=== PATIENT | male | born 1985 | race Caucasian/White ===

== ENCOUNTER 2016-12-27 06:06 | Emergency (ER) | payer OTHER ==
[~2016-12-27] VITALS: Ht 175.3 cm; Wt 88.0 kg
[2016-12-27] MEDS ORDERED: IOHEXOL 350 MG/ML 10 ML VIAL (for RAD DIAG) IVCONTRAST ONE (06:07)
[2016-12-27 06:08] VITALS: BP 142/89; PULSE 70; RESP 16; TEMP 98.2; O2SAT 97
[2016-12-27] MEDS ORDERED: PENICILLIN (06:18)
[2016-12-27 06:23] VITALS: O2SAT 100
--- NOTE | 2016-12-27 06:33 | PD ---
HPI Chief Complaint: Chest Pain Time Seen by Provider: 06:25 Travel History International Travel<30 days: No Contact w/Intl Traveler<30days: No Traveled to known affect area: No History of Present Illness HPI The patient is a 31 year old male who presents to the [facility] emergency department with a history of chills, a sensation of warmth in his head, chest tightness, and tingling in the left arm. He went to sleep at 3AM. He awoke with an alarm to take his prescription for Penicillin. He is on it for a dental infection in the maxilla on the right. He has been on the antibiotic for approximately a week. He arrived yesterday from [place]. The chest tightness is in the upper left chest and into the shoulder. It made him feel short of breath. He reports that he has had tingling sensations in the left arm in the past. He did have this evaluated a few months ago and was diagnosed with a pinched nerve after imaging studies were done. He denies having any diaphoresis. He denies having any nausea or vomiting. On review systems otherwise, the patient denies having any known fevers, cough, congestion, neck pain, abdominal pain, diarrhea, urinary symptoms, or neurologic symptoms. The patient denies any history of hypertension, hyperlipidemia, diabetes mellitus. He denies any tobacco use. He denies having any significant family history of heart disease. He denies any prior history of DVT or PE. [facility] Past Medical History Narrative Medical The patient's past medical history is significant for a dental infection, reported recent diagnosis of a pinched nerve affecting the left arm. Medical History: Denies Significant Hx Past Surgical History Narrative Surgical The patient's past surgical history is significant for wisdom teeth extraction, right hand surgery. Social History Alcohol Use: Yes Tobacco Use: No Substance Use: No Allergies-Medications (Allergen,Severity, Reaction): Coded Allergies: Sulfa (Sulfonamide Antibiotics) (Verified Allergy, Severe, Anaphylaxis, ) acetaminophen (Verified Allergy, Severe, Hallucinations, 12/27/16) hydromorphone (Verified Allergy, Severe, Lethargy, 12/27/16) oxycodone (Verified Allergy, Severe, Hallucinations, 12/27/16) Reported Meds & Prescriptions Reported Meds & Active Scripts Active Reported [Penicillin] Unknown Strength Unknown Dose Narrative Medication Penicillin and Ibuprofen. Review of Systems Except as stated in HPI: all other systems reviewed are Neg General / Constitutional: No: Fever Eyes: No: Visual changes HENT: Positive: Dental Difficulties, No: Headaches Cardiovascular: Positive: Chest Pain or Discomfort Respiratory: Positive: Shortness of Breath Gastrointestinal: No: Abdominal Pain Genitourinary: No: Dysuria Musculoskeletal: No: Pain Skin: No Rash Neurologic: Positive: Paresthesia (left arm), No: Weakness, Focal Abnormalities , Change in Mentation, Slurred Speech, Sensory Disturbance Psychiatric: No: Depression Endocrine: No: Polydipsia Hematologic/Lymphatic: No: Easy Bruising Physical Exam Narrative General: The patient is a well-developed well-nourished male in no acute distress. Head and Neck exam: Head is normocephalic atraumatic. Eyes: EOMI, pupils are equal round and reactive to light. Nose: Midline septum with pink mucous membranes Mouth: Dentition unremarkable. Moist mucus membranes. Posterior oropharynx is not erythematous. No tonsillar hypertrophy. Uvula midline. Airway patent. Neck: No palpable lymphadenopathy. No nuchal rigidity. No thyromegaly. Cardiovascular: Regular rate and rhythm without murmurs, gallops, or rubs. Lungs: Clear to auscultation bilaterally. No wheezes, rhonchi, or rales. Abdomen: Soft, without tenderness to palpation in all 4 quadrants of the abdomen. No guarding, rebound, or rigidity. Normal bowel sounds are audible. No tenderness on palpation of McBurney's point. Extremities: No clubbing, cyanosis, or edema. 2+ pulses in all 4 extremities. No calf tenderness on palpation. Negative Homans sign. Back: No spinous process tenderness to palpation. No costovertebral angle tenderness to palpation. Neurologic Exam: Grossly nonfocal. Skin Exam: No rash noted. Intact skin that is warm and dry. Data Data Last Documented VS Vital Signs Date Time Temp Pulse Resp B/P (MAP) Pulse Ox O2 Delivery O2 Flow Rate FiO2 12/27/16 06:23 100 Room Air 12/27/16 06:23 12/27/16 06:08 98.2 70 16 Orders Orders Electrocardiogram (12/27/16 06:19) Complete Blood Count With Diff (12/27/16 06:19) Basic Metabolic Panel (Bmp) (12/27/16 06:19) Ckmb (Isoenzyme) Profile (12/27/16 06:19) Troponin I (12/27/16 06:19) Chest, Single Ap (12/27/16 06:19) Iv Access Insert/Monitor (12/27/16 06:19) Ecg Monitoring (12/27/16 06:19) Oxygen Administration (12/27/16 06:19) Oximetry (12/27/16 06:19) D-Dimer (12/27/16 06:25) Aspirin Chew (Aspirin Chew) (12/27/16 07:00) Labs Laboratory Tests Test 12/27/16 06:21 12/27/16 06:32 White Blood Count 10.3 TH/MM3 Red Blood Count 5.27 MIL/MM3 Hemoglobin 15.2 GM/DL Hematocrit 43.8 % Mean Corpuscular Volume 83.1 FL Mean Corpuscular Hemoglobin 28.8 PG Mean Corpuscular Hemoglobin Concent 34.6 % Red Cell Distribution Width 13.6 % Platelet Count 198 TH/MM3 Mean Platelet Volume 8.5 FL Neutrophils (%) (Auto) 49.4 % Lymphocytes (%) (Auto) 33.6 % Monocytes (%) (Auto) 7.0 % Eosinophils (%) (Auto) 9.5 % Basophils (%) (Auto) 0.5 % Neutrophils # (Auto) 5.1 TH/MM3 Lymphocytes # (Auto) 3.5 TH/MM3 Monocytes # (Auto) 0.7 TH/MM3 Eosinophils # (Auto) 1.0 TH/MM3 Basophils # (Auto) 0.1 TH/MM3 CBC Comment DIFF FINAL Differential Comment Blood Urea Nitrogen 16 MG/DL Creatinine 0.88 MG/DL Random Glucose 96 MG/DL Calcium Level 8.9 MG/DL Sodium Level 139 MEQ/L Potassium Level 4.3 MEQ/L Chloride Level 103 MEQ/L Carbon Dioxide Level 28.1 MEQ/L Anion Gap 8 MEQ/L Estimat Glomerular Filtration Rate 100 ML/MIN Total Creatine Kinase 70 U/L Troponin I LESS THAN 0.02 NG/ML MDM Medical Decision Making Medical Screen Exam Complete: Yes Emergency Medical Condition: Yes Medical Record Reviewed: Yes Differential Diagnosis Acute coronary syndrome, versus pulmonary embolism, versus anxiety, versus pleurisy, versus musculoskeletal strain Narrative Course During the course of the patients emergency department visit, the patients history, examination, and differential diagnosis were reviewed with the patient. The patient was placed on a cardiac catheterization technologist with oximetry and frequent blood pressure monitoring. The patient had IV access obtained and blood work sent for analysis. The patient had an ECG done on arrival. The patient's ECG shows a sinus rhythm heart rate is 75, borderline left axis deviation is noted, T waves are inverted in lead 3, no acute ST segment elevation is noted. The patient was initially provided aspirin 324 mg by mouth 1. The patients laboratory studies and imaging studies are pending at the conclusion of my shows. The patient's case will be checked out to the oncoming emergency physician to disposition the patient based on the conclusion of his workup. Diagnosis Primary Impression: Chest pain Qualified Codes: R07.9 - Chest pain, unspecified Niki Kemp MD Dec 27, 2016 06:33
[2016-12-27 06:42] LABS: AUTOMATED NEUTROPHIL # 5.1 TH/MM3 (1.8-7.7); BASOPHIL # 0.1 TH/MM3 (0-0.2); BASOPHIL % 0.5 % (0.0-2.0); EOSINOPHIL % 9.5 % (0.0-4.0); HEMATOCRIT 43.8 % (39.0-51.0); HEMO FLAGS DIFF FINAL; LYMPH % 33.6 % (9.0-44.0); LYMPHOCYTE # 3.5 TH/MM3 (1.0-4.8); MEAN CELL VOLUME 83.1 FL (80.0-100.0); MEAN CORPUSCULAR HEMOGLOBIN 28.8 PG (27.0-34.0); MEAN CORPUSCULAR HGB CONC 34.6 % (32.0-36.0); NEUT % 49.4 % (16.0-70.0); PLATELET COUNT 198 TH/MM3 (150-450); RED BLOOD COUNT 5.27 MIL/MM3 (4.50-5.90); RED CELL DISTRIBUTION WIDTH 13.6 % (11.6-17.2); WHITE BLOOD COUNT 10.3 TH/MM3 (4.0-11.0)
--- NOTE | 2016-12-27 06:49 | RADRPT ---
EXAM DATE/TIME: 12/27/2016 06:27 [facility] COMPARISON: No previous studies available for comparison. INDICATIONS : Chest pain, shortness of breath. MEDICAL HISTORY : None. SURGICAL HISTORY : None. ENCOUNTER: Initial ACUITY: 1 day PAIN SCORE: 0/10 LOCATION: Bilateral chest FINDINGS: Examination of the chest demonstrates the heart and mediastinum to be normal. The lungs are free of p arenchymal opacity. No effusions are identified. Osseous structures are intact. CONCLUSION: No acute cardiopulmonary disease. Ramos Peters MD on December 27, 2016 at 6:47 Board Certified Radiologist. This report was verified electronically.
[2016-12-27 06:59] LABS: ANION GAP 8 MEQ/L (5-15); BICARBONATE 28.1 MEQ/L (21.0-32.0); BLOOD UREA NITROGEN 16 MG/DL (7-18); CHLORIDE 103 MEQ/L (98-107); GLOMERULAR FILTRATION RATE 100 ML/MIN (>89); POTASSIUM 4.3 MEQ/L (3.5-5.1); SODIUM (NA) 139 MEQ/L (136-145)
[2016-12-27] MEDS ORDERED: ASPIRIN 81 MG CHEW TAB CHEW ONE (07:00)
[2016-12-27 07:03] LABS: CREATINE KINASE 70 U/L (39-308)
--- NOTE | 2016-12-27 08:56 | RADRPT ---
EXAM DATE/TIME: 12/27/2016 08:17 [facility] COMPARISON: No previous studies available for comparison. INDICATIONS : Chest pain IV CONTRAST: 70 cc Omnipaque 350 (iohexol) IV RADIATION DOSE: 15.11 CTDIvol (mGy) MEDICAL HISTORY : None SURGICAL HISTORY : None. ENCOUNTER: Initial ACUITY: 1 day PAIN SCALE: 5/10 LOCATION: chest TECHNIQUE: Volumetric scanning of the chest was performed using a pulmonary embolism protocol MIP images were re constructed. Using automated exposure control and adjustment of the mA and/or kV according to patien t size, radiation dose was kept as low as reasonably achievable to obtain optimal diagnostic quality images. DICOM format image data is available electronically for review and comparison. Follow-up recommendations for detected pulmonary nodules are based at a minimum on nodule size and pa tient risk factors according to Fleischner Society Guidelines. FINDINGS: PULMONARY ARTERIES: No filling defects are seen in the pulmonary arteries through the segmental level. LUNGS: There is no consolidation or pneumothorax . No concerning pulmonary nodule is visualized. PLEURAE: There is no pleural thickening or pleural effusion. MEDIASTINUM: There is good visualization of the great vessels of the middle mediastinum. No evidence of mediastin al or hilar adenopathy/mass. MUSCULOSKELETAL: Within normal limits for patient age. MISCELLANEOUS: The visualized upper abdominal organs demonstrate no acute abnormality. CONCLUSION: Normal examination. Yovanny Grover MD on December 27, 2016 at 8:48 Board Certified Radiologist. This report was verified electronically.
--- NOTE | 2016-12-27 09:07 | PD ---
Data Data Last Documented VS Vital Signs Date Time Temp Pulse Resp B/P (MAP) Pulse Ox O2 Delivery O2 Flow Rate FiO2 12/27/16 06:23 100 Room Air 12/27/16 06:23 12/27/16 06:08 98.2 70 16 Orders Orders Electrocardiogram (12/27/16 06:19) Complete Blood Count With Diff (12/27/16 06:19) Basic Metabolic Panel (Bmp) (12/27/16 06:19) Ckmb (Isoenzyme) Profile (12/27/16 06:19) Troponin I (12/27/16 06:19) Chest, Single Ap (12/27/16 06:19) Iv Access Insert/Monitor (12/27/16 06:19) Ecg Monitoring (12/27/16 06:19) Oxygen Administration (12/27/16 06:19) Oximetry (12/27/16 06:19) D-Dimer (12/27/16 06:25) Aspirin Chew (Aspirin Chew) (12/27/16 07:00) Ct Pulmonary Angiogram (12/27/16 ) Iohexol 350 Inj (Omnipaque 350 Inj) (12/27/16 06:07) Labs Laboratory Tests Test 12/27/16 06:21 12/27/16 06:32 White Blood Count 10.3 TH/MM3 Red Blood Count 5.27 MIL/MM3 Hemoglobin 15.2 GM/DL Hematocrit 43.8 % Mean Corpuscular Volume 83.1 FL Mean Corpuscular Hemoglobin 28.8 PG Mean Corpuscular Hemoglobin Concent 34.6 % Red Cell Distribution Width 13.6 % Platelet Count 198 TH/MM3 Mean Platelet Volume 8.5 FL Neutrophils (%) (Auto) 49.4 % Lymphocytes (%) (Auto) 33.6 % Monocytes (%) (Auto) 7.0 % Eosinophils (%) (Auto) 9.5 % Basophils (%) (Auto) 0.5 % Neutrophils # (Auto) 5.1 TH/MM3 Lymphocytes # (Auto) 3.5 TH/MM3 Monocytes # (Auto) 0.7 TH/MM3 Eosinophils # (Auto) 1.0 TH/MM3 Basophils # (Auto) 0.1 TH/MM3 CBC Comment DIFF FINAL Differential Comment Blood Urea Nitrogen 16 MG/DL Creatinine 0.88 MG/DL Random Glucose 96 MG/DL Calcium Level 8.9 MG/DL Sodium Level 139 MEQ/L Potassium Level 4.3 MEQ/L Chloride Level 103 MEQ/L Carbon Dioxide Level 28.1 MEQ/L Anion Gap 8 MEQ/L Estimat Glomerular Filtration Rate 100 ML/MIN Total Creatine Kinase 70 U/L Troponin I LESS THAN 0.02 NG/ML D-Dimer Quantitative (PE/DVT) 0.57 MG/L [facility] Supervised Visit with JANELLE: Yes Narrative Course 31-year-old man presents emergent heart complaining of chest pain, left-sided, starting last night, rating in his arm. Initially seen by Dr. Niki Kemp signed out to me to follow-up on results of diagnostic testing. LABS: CBC is unremarkable CMP unremarkable Troponin negative D-dimer 0.57 CT pulmonary angiogram negative Chest x-ray negative Personally Reviewed of EKG. No definite evidence of acute ischemia. FINAL: 31-year-old male sided chest pain. Clinically history is mildly suggestive of heart problems. Troponin negative. EKG without acute ischemia. D-dimer is a little bit elevated but CT shows no evidence of PE. He has been under some stress. He also is taking penicillin antibiotics u as well as NSAIDs and could be having some pill esophagitis or gastritis. Nonetheless, I think he is safe for outpatient follow-up. Diagnosis Primary Impression: Chest pain Qualified Codes: R07.9 - Chest pain, unspecified Additional Instruction: Continue current medications. Return to the emergency department for any worsening chest pain or trouble breathing. Follow-up with her primary doctor soon as you returned home. Med/Other Pt SpecificInfo: No Change to Meds Disposition: 01 DISCHARGE HOME Condition: Stable Gabriel Persaud MD Dec 27, 2016 09:07
--- NOTE | 2016-12-27 18:39 | EKG ---
Date Performed: 12/27/2016 Time Performed: 06:22:20 PTAGE: 31 years EKG: Sinus rhythm BORDERLINE LEFT AXIS DEVIATION MODERATE VOLTAGE CRITERIA FOR LVH, CONSIDER NORMAL VARIANT BORDERLINE ECG NO PREVIOUS TRACING DOCTOR: Brooke Jaramillo Interpretating Date/Time 12/27/2016 18:35:36
== END 2016-12-27 09:32 | disposition home or self-care (01) ==
LOC: NEPC 06:06
DX: R07.9 Chest pain, unspecified (principal); R06.02 Shortness of breath; K04.7 Periapical abscess without sinus
CPT/HCPCS: 71010; 71275; 80048; 82550; 84484; 85025; 85379; 93005; 99285; Q9967